=== PATIENT | female | born 1970 | race Caucasian/White ===

== ENCOUNTER 2016-10-14 11:35 | Emergency (ER) | payer BC ==
[2016-10-14 12:18] LABS: HEMOGLOBIN 14.6 gm/dl (12.3-15.3); RED BLOOD COUNT 4.45 M/UL (4.00-5.10); WHITE BLOOD COUNT 7.7 K/UL (4.5-11.0)
[2016-10-14 12:36] LABS: BUN/CREATININE RATIO 11 (0-10)
== END 2016-10-14 16:32 | disposition home or self-care (01) ==
LOC: ER1 11:35
PROVIDERS: Emergency Medicine
DX: J18.9 Pneumonia, unspecified organism (principal); F17.210 Nicotine dependence, cigarettes, uncomplicated; I10 Essential (primary) hypertension; Z79.899 Other long term (current) drug therapy; Z79.891 Long term (current) use of opiate analgesic
CPT/HCPCS: 36415; 71010; 80053; 82550; 82553; 83874; 84484; 85025; 85379; 93005; 96361; 96374; 99284; J2930; J7050; Q9963

== ENCOUNTER 2016-10-18 15:27 | Emergency (ER) | payer BC ==
[2016-10-18 16:25] LABS: HEMOGLOBIN 14.7 gm/dl (12.3-15.3); RED BLOOD COUNT 4.44 M/UL (4.00-5.10); WHITE BLOOD COUNT 11.5 K/UL (4.5-11.0)
[2016-10-18 16:45] LABS: BUN/CREATININE RATIO 14 (0-10)
== END 2016-10-18 20:30 | disposition home or self-care (01) ==
LOC: ER1 15:27
PROVIDERS: Emergency Medicine
DX: J98.01 Acute bronchospasm (principal); F17.200 Nicotine dependence, unspecified, uncomplicated
CPT/HCPCS: 36415; 71020; 80053; 82550; 82553; 83874; 83880; 84484; 85025; 94640; 94664; 96374; 99285; J2930; J7050; Q9963

== ENCOUNTER → 2020-12-04 | Outpatient (CLI) | payer OTHER ==
[~2020-12-04] MED LIST: BACTROBAN NASAL1 G1 TOP; BREO ELLIPTA 11 EACH INH; BROMFED DM COU473 ML PO; CEFUROXIME500 MG PO; COMBIVENT0.074 GM/I INH; HABITROL 21 MG P1 EA TOP; HYDROCODON-ACE1 EAC4 PO; INCRUSE ELLI62.5 MCG INH; LIPITOR40 MG PO; LISINOPRIL20 MG PO; MEDROL4 MG PO; MIRALAX17 GM PO; MOBIC7.5 MG PO; NAPROSYN500 MG PO; NEURONTIN 100100 MG PO; OMNICEF 300 MG300 MG PO; PERCOCET 7.5-31 EACH PO; PREDNISONE50 MG PO; PRINIVIL5 MG PO; PROAIR HFA8.5 GM INH; SENOKOT-S TABL1 EACH PO; TESSALON PERLE100 MG PO; VITAMIN D250 MCG PO; XARELTO20 MG PO; ZITHROMAX250 MG PO
== END ==
LOC: KOH-I 10:08
DX: R91.1 Solitary pulmonary nodule (principal); J84.89 Other specified interstitial pulmonary diseases; Z00.00 Encounter for general adult medical examination without abnormal findings
CPT/HCPCS: 71250

== ENCOUNTER → 2020-12-25 | Outpatient (CLI) | payer OTHER | LOC: HEART 5 14:40 | DX: J44.9 Chronic obstructive pulmonary disease, unspecified (principal); Z28.9 Immunization not carried out for unspecified reason; R94.2 Abnormal results of pulmonary function studies | CPT/HCPCS: 94060; 94729 ==

== ENCOUNTER → 2021-01-04 | Day surgery (SDC) | payer OTHER | END | disposition home or self-care (01) | LOC: OR 06:21 | DX: Z12.11 Encounter for screening for malignant neoplasm of colon (principal); K63.5 Polyp of colon; K62.1 Rectal polyp; K64.0 First degree hemorrhoids; K59.09 Other constipation; J44.9 Chronic obstructive pulmonary disease, unspecified; I10 Essential (primary) hypertension; E78.00 Pure hypercholesterolemia, unspecified; F17.210 Nicotine dependence, cigarettes, uncomplicated; E66.8 Other obesity; Z68.35 Body mass index [BMI] 35.0-35.9, adult; Z79.891 Long term (current) use of opiate analgesic; Z79.899 Other long term (current) drug therapy | CPT/HCPCS: J2001; J2704; J7040 ==

== ENCOUNTER 2021-01-23 10:08 | Emergency (ER) | payer OTHER ==
[~2021-01-23 10:08] MED LIST changes: -PREDNISONE50 MG PO
[2021-01-23 10:50] LABS: HEMOGLOBIN 13.9 gm/dl (12.3-15.3); RED BLOOD COUNT 4.22 M/UL (4.00-5.10); WHITE BLOOD COUNT 7.1 K/UL (4.5-11.0)
[2021-01-23 11:16] LABS: BUN/CREATININE RATIO 13 (0-10)
[2021-01-23] MEDS ORDERED: PREDNISONE50 MG PO (15:32)
== END 2021-01-23 15:45 | disposition home or self-care (01) ==
LOC: ER1 10:08
PROVIDERS: Student in an Organized Health Care Education/Training Program
DX: J44.1 Chronic obstructive pulmonary disease with (acute) exacerbation (principal); I10 Essential (primary) hypertension; F17.210 Nicotine dependence, cigarettes, uncomplicated
CPT/HCPCS: 71045; 80053; 82550; 82553; 83874; 84484; 84702; 85025; 85379; 93005; 94664; 99285; Q9967

== ENCOUNTER 2021-03-15 10:01 | Emergency (ER) | payer OTHER ==
[~2021-03-15 10:01] MED LIST changes: +PREDNISONE50 MG PO
[2021-03-15 11:57] LABS: HEMOGLOBIN 15.9 gm/dl (12.3-15.3); RED BLOOD COUNT 4.71 M/UL (4.00-5.10); WHITE BLOOD COUNT 13.7 K/UL (4.5-11.0)
[2021-03-15 12:22] LABS: BUN/CREATININE RATIO 19 (0-10)
== END 2021-03-15 12:48 | disposition home or self-care (01) ==
LOC: ER1 10:01
PROVIDERS: Physician Assistant
DX: U07.1 COVID-19 (principal); J44.9 Chronic obstructive pulmonary disease, unspecified; I10 Essential (primary) hypertension; F17.200 Nicotine dependence, unspecified, uncomplicated; Z90.710 Acquired absence of both cervix and uterus
CPT/HCPCS: 80053; 82550; 82553; 84484; 85025; 85379; 93005; 99285; Q9967

== ENCOUNTER 2021-03-27 16:56 | Emergency (ER) | payer OTHER ==
[2021-03-27 18:33] LABS: HEMOGLOBIN 14.5 gm/dl (12.3-15.3); RED BLOOD COUNT 4.32 M/UL (4.00-5.10); WHITE BLOOD COUNT 9.2 K/UL (4.5-11.0)
[2021-03-27 18:51] LABS: BUN/CREATININE RATIO 12 (0-10)
[2021-03-27] MEDS ORDERED: PREDNISONE 20 M20 MG PO (20:27)
== END 2021-03-27 20:36 | disposition home or self-care (01) ==
LOC: ER1 16:56
PROVIDERS: Physician Assistant
DX: I82.401 Acute embolism and thrombosis of unspecified deep veins of right lower extremity (principal); J44.1 Chronic obstructive pulmonary disease with (acute) exacerbation; I10 Essential (primary) hypertension; F17.200 Nicotine dependence, unspecified, uncomplicated; Z86.718 Personal history of other venous thrombosis and embolism; Z90.710 Acquired absence of both cervix and uterus
CPT/HCPCS: 80053; 82550; 82553; 83874; 84484; 85025; 93005; 94640; 94664; 96372; 99285; J2930; Q9967

== ENCOUNTER 2021-05-28 18:55 | Emergency (ER) | payer OTHER ==
[~2021-05-28 18:55] MED LIST changes: +PREDNISONE 20 M20 MG PO
[2021-05-28 20:14] LABS: HEMOGLOBIN 14.5 gm/dl (12.3-15.3); RED BLOOD COUNT 4.28 M/UL (4.00-5.10); WHITE BLOOD COUNT 9.6 K/UL (4.5-11.0)
[2021-05-28 20:30] LABS: BUN/CREATININE RATIO 11 (0-10)
== END 2021-05-28 23:30 | disposition home or self-care (01) ==
LOC: ER1 18:55
PROVIDERS: Student in an Organized Health Care Education/Training Program
DX: R09.1 Pleurisy (principal); F17.210 Nicotine dependence, cigarettes, uncomplicated; I10 Essential (primary) hypertension; J44.9 Chronic obstructive pulmonary disease, unspecified; J84.10 Pulmonary fibrosis, unspecified; Z86.718 Personal history of other venous thrombosis and embolism
CPT/HCPCS: 80053; 83690; 85025; 99285; Q9967

== ENCOUNTER → 2021-05-30 | Outpatient (CLI) | payer OTHER | LOC: EXRD 10:56 | DX: U09.9 Post COVID-19 condition, unspecified (principal) | CPT/HCPCS: 71046; 94060; 94729 ==

== ENCOUNTER → 2021-10-26 | Outpatient (CLI) | payer OTHER | LOC: HEART 5 10:30 | DX: J84.9 Interstitial pulmonary disease, unspecified (principal); Z28.39 Other underimmunization status; R55 Syncope and collapse; Z00.00 Encounter for general adult medical examination without abnormal findings; Z86.16 Personal history of COVID-19; R94.2 Abnormal results of pulmonary function studies | CPT/HCPCS: 71046; 94060; 94729 ==

== ENCOUNTER → 2021-11-09 | Outpatient (CLI) | payer OTHER | LOC: KOH-I 15:30 | DX: J84.9 Interstitial pulmonary disease, unspecified (principal) | CPT/HCPCS: 71250 ==